=== PATIENT | female | born 1970 | race Two or more races ===

== ENCOUNTER → 2020-07-12 | Outpatient (CLI) | payer MEDICAID ==
[2020-07-12 10:51] LABS: BASOPHIL % 0.5 % (0-2); PLATELET COUNT 306 x10^3mcL (130-400); RED CELL DISTRIBUTION WIDTH 13.8 % (11.5-14.5)
[2020-07-12 10:56] LABS: TOTAL IRON BINDING CAPACITY 301 ug/dL (250-450)
[2020-07-12 11:07] LABS: ALBUMIN 4.1 g/dL (3.4-5.0); ALKALINE PHOSPHATASE 57 U/L (46-116); ALT/SGPT 22 U/L (14-59); AST/SGOT 20 U/L (15-37); BILIRUBIN TOTAL 0.9 mg/dL (0.20-1.00); CALCIUM 9.6 mg/dL (8.5-10.1); CARBON DIOXIDE 29.4 mmol/L (21-32); CHLORIDE SERUM 102 mmol/L (98-107); CREATININE SERUM 0.8 mg/dL (0.6-1.0); GFR1 > 60 mL/min; GLUCOSE SERUM 93 mg/dL (74-106); POTASSIUM SERUM 3.8 mmol/L (3.5-5.1); SODIUM SERUM 138 mmol/L (136-145); TOTAL PROTEIN, SERUM 7.8 g/dL (6.4-8.2)
[2020-07-12 11:08] LABS: IRON 195 ug/dL (50-170)
== END | disposition home or self-care (01) ==
LOC: LB 10:11
DX: R53.83 Other fatigue (principal); D64.9 Anemia, unspecified; R63.5 Abnormal weight gain; R53.1 Weakness

== ENCOUNTER → 2020-07-13 | Outpatient (CLI) | payer MEDICAID | END | disposition home or self-care (01) | LOC: MA 09:05 | PROC: BH02ZZZ Plain Radiography of Bilateral Breasts (ICD-10-PCS; principal; 2020-07-13) | DX: R92.8 Other abnormal and inconclusive findings on diagnostic imaging of breast (principal) | CPT/HCPCS: 77066 ==

== ENCOUNTER → 2020-07-20 | Outpatient (CLI) | payer MEDICAID | END | disposition home or self-care (01) | LOC: MA 09:27 | PROC: BH00ZZZ Plain Radiography of Right Breast (ICD-10-PCS; principal; 2020-07-20) | PROC: BH40ZZZ Ultrasonography of Right Breast (ICD-10-PCS; 2020-07-20) | DX: R92.8 Other abnormal and inconclusive findings on diagnostic imaging of breast (principal); Z85.3 Personal history of malignant neoplasm of breast | CPT/HCPCS: 76642; 77065; Q0092 ==